=== PATIENT | male | born 1955 | race Caucasian/White ===

== ENCOUNTER 2017-02-25 21:37 | Emergency (ER) | payer OTHER ==
[~2017-02-25 21:37] MED LIST: BACTRIM DS TAB1 EAC2 PO; LIPITOR; NIACIN500 MG; VIGAMOX3 M1 OP
[2017-02-25] MEDS ORDERED: KEFLEX500 M4 PO (22:32)
== END 2017-02-26 00:14 ==
LOC: EDMED 21:37
DX: H57.11 Ocular pain, right eye (principal); H57.8 Other specified disorders of eye and adnexa